=== PATIENT | male | born 1950 ===

== ENCOUNTER → 2018-08-29 20:49 | Outpatient (REF) | payer MEDICARE, SELFPAY ==
[2018-08-29 20:51] LABS: Bacteria Urine None Seen; RBC Urine None Seen (0-5/HPF); WBC Urine None Seen (0-5/HPF)
[2018-08-29 21:28] LABS: Appearance Urine UA CLEAR; Bilirubin Urine UA NEGATIVE (NEGATIVE); Color Urine UA YELLOW; Glucose Urine UA NEGATIVE (Negative); Ketones Urine UA NEGATIVE (NEGATIVE); Leukocyte Esterase Urine UA NEGATIVE (NEGATIVE); Nitrite Urine UA NEGATIVE (Negative); Occult Blood Urine UA NEGATIVE (Negative); Protein Urine UA NEGATIVE (Negative); Urobilinogen Urine UA 0.2 E.U./dL (0.2); pH Urine UA 6.5 (4.5-8.0)
[2018-08-29 21:36] LABS: Alanine Aminotransferase 59 IU/L (21-72); Albumin 4.4 g/dL (3.5-5.0); Albumin Globulin Ratio 1.8 (1.0-2.8); Alkaline Phosphatase 73 U/L (38-126); Aspartate Aminotransferase 50 IU/L (17-59); Bilirubin Total 0.9 mg/dL (0.2-1.3); Blood Urea Nitrogen 16 mg/dL (9-20); Calcium 9.7 mg/dL (8.4-10.2); Carbon Dioxide 30 mmol/L (22-32); Chloride 102 mmol/L (98-107); Cholesterol 132 mg/dL (140-199); Estimated Glomerular Filt Rate > 60.0 mL/min (>60); Globulin 2.4 g/dL (1.7-4.1); Glucose 102 mg/dL (80-110); HDL Cholesterol 44 mg/dL (40-60); HEMOLYSIS < 15 (0-50); LDL Cholesterol Calculated 66 mg/dL (<100); Potassium 4.3 mmol/L (3.4-5.1); Sodium 139 mmol/L (137-145); Total Protein 6.8 g/dL (6.3-8.2); Triglycerides 109 mg/dL (35-150)
[2018-08-29 21:51] LABS: Squamous Epithelial Cell Urine 1-5 /HPF
[2018-08-29 22:09] LABS: Ferritin 17.7 ng/mL (17.9-464)
[2018-08-29 22:46] LABS: TSH w/ Reflex to FT4 1.02 uIU/mL (0.47-4.68)
[2018-08-31 19:39] LABS: Estradiol 24 pg/mL (< 40)
[2018-09-01 14:30] LABS: PSA Total < 0.10 ng/mL (< 4.01)
[2018-09-03 21:58] LABS: Testosterone Free 49.9 pg/mL (35.0-155.0); Testosterone Total 427 ng/dL (250-1100)
== END ==
LOC: LAB 20:49
PROVIDERS: Visit Provider Naturopath
DX: Z13.89 Encounter for screening for other disorder (principal); E29.1 Testicular hypofunction; I10 Essential (primary) hypertension; I25.2 Old myocardial infarction; Z85.46 Personal history of malignant neoplasm of prostate; E78.5 Hyperlipidemia, unspecified
CPT/HCPCS: 36415; 80053; 80061; 81001; 82670; 82728; 84153; 84154; 84402; 84403; 84443

== ENCOUNTER → 2018-09-10 21:02 | Outpatient (REF) | payer MEDICARE, SELFPAY ==
[2018-09-10 21:12] LABS: Add Manual Diff / Slide Review NO; Basophils Absolute Auto 100 /uL (0-100); Basophils Percent Auto 1.1 % (0-2); Eosinophils Absolute Auto 600 /uL (0-450); Eosinophils Percent Auto 11.6 % (2-4); Hematocrit 43.1 % (41-53); Hemoglobin 14.5 g/dL (13.5-17.5); Lymphocytes Absolute Auto 1600 /uL (1100-4500); Lymphocytes Percent Auto 30.1 % (25-40); Mean Corpuscular HGB Conc 33.6 % (30-36); Mean Corpuscular Hemoglobin 29.7 PG (26-34); Mean Corpuscular Volume 88.4 fL (80-100); Monocytes Absolute Auto 400 /uL (0-900); Monocytes Percent Auto 7.3 % (3-14); Neutrophils Absolute Auto 2600 /uL (1500-7000); Neutrophils Percent Auto 49.9 % (50-75); Platelet Count 132 X10^3/uL (150-400); Red Blood Cell Count 4.87 X10^6/uL (4.5-5.9); Red Cell Distribution Width 13.3 % (11.6-14.8); White Blood Cell Count 5.2 X10^3/uL (4.5-11.0)
== END ==
LOC: LAB 21:02
PROVIDERS: Visit Provider Naturopath
DX: E61.1 Iron deficiency (principal); E29.1 Testicular hypofunction; R53.83 Other fatigue; Z87.19 Personal history of other diseases of the digestive system
CPT/HCPCS: 36415; 85025

== ENCOUNTER → 2018-12-07 22:23 | Outpatient (REF) | payer MEDICARE, SELFPAY ==
[2018-12-07 22:47] LABS: Add Manual Diff / Slide Review NO; Basophils Absolute Auto 100 /uL (0-100); Eosinophils Absolute Auto 500 /uL (0-450); Hemoglobin 15.5 g/dL (13.5-17.5); Lymphocytes Absolute Auto 1200 /uL (1100-4500); Lymphocytes Percent Auto 19.6 % (25-40); Mean Corpuscular HGB Conc 33.6 % (30-36); Mean Corpuscular Hemoglobin 30.4 PG (26-34); Mean Corpuscular Volume 90.5 fL (80-100); Monocytes Absolute Auto 800 /uL (0-900); Monocytes Percent Auto 12.6 % (3-14); Neutrophils Absolute Auto 3700 /uL (1500-7000); Neutrophils Percent Auto 58.8 % (50-75); Platelet Count 123 X10^3/uL (150-400); Red Blood Cell Count 5.08 X10^6/uL (4.5-5.9); Red Cell Distribution Width 14.2 % (11.6-14.8); White Blood Cell Count 6.3 X10^3/uL (4.5-11.0)
[2018-12-07 23:50] LABS: Estradiol, Total 23.8 pg/mL
[2018-12-07 23:55] LABS: Ferritin 19.4 ng/mL (17.9-464)
[2018-12-11 12:09] LABS: Sex Hormone Binding Globulin 43.3
[2018-12-11 14:48] LABS: PSA Total < 0.10 ng/mL (< 4.01)
[2018-12-12 11:49] LABS: Testosterone, Total 296.8; Testosterone,Free 5.3
== END ==
LOC: LAB 22:23
PROVIDERS: Visit Provider Naturopath
DX: E61.1 Iron deficiency (principal); S59.912A Unspecified injury of left forearm, initial encounter; E29.1 Testicular hypofunction
CPT/HCPCS: 36415; 82670; 82728; 84153; 84154; 84270; 84402; 84403; 85025